=== PATIENT | male | born 1940 | race Asian ===

== ENCOUNTER 2019-07-20 22:43 | Emergency (ER) | payer OTHER ==
[~2019-07-20] VITALS: Ht 149.9 cm; Wt 46.7 kg
[2019-07-20] MEDS ORDERED: IV NS 0.9% 500 ML BAG IV ONE (23:00)
--- NOTE | 2019-07-20 23:01 | NUR ---
BIB EMS FROM [facility] C/O HYPOGLYCEMIA. 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 PT ALERT AND RESPONSIVE, NO ALOC . NO PERSPIRATION. NO C/O PAIN OR DISCOMFORT .WILL CONT TO MONITOR ,
--- NOTE | 2019-07-20 23:05 | NUR ---
FSBS: 166 MD AWARE
[2019-07-20 23:06] LABS: BASOPHILS % (AUTO) 0.2 % (0.0-2.0); EOSINOPHILS % (AUTO) 0.1 % (0.0-6.0); HEMATOCRIT 29 % (39-51); HEMOGLOBIN 9.8 g/dL (13.5-17.5); LYMPHOCYTES # (AUTO) 0.4 /CMM (0.8-4.8); LYMPHOCYTES % (AUTO) 6.1 % (20.0-44.0); MEAN CORPUSCULAR HGB CONC 34 g/dl (31.0-36.0); MEAN CORPUSCULAR VOLUME 97 fL (80-96); MONOCYTES # (AUTO) 0.4 /CMM (0.1-1.30); MONOCYTES % (AUTO) 6.6 % (2.0-12.0); NEUTROPHILS # (AUTO) 5.8 /CMM (1.8-8.9); PLATELET COUNT (AUTO) 195 /CMM (150-450); RED BLOOD CELL COUNT(AUTO) 3.03 MIL/uL (4.5-6.0); WHITE BLOOD COUNT (AUTO) 6.6 K/uL (4.3-11.0)
[2019-07-20 23:13] LABS: CALCIUM, SERUM 8.4 mg/dL (8.5-10.1); CARBON DIOXIDE 25 mmol/L (21-32); CHLORIDE 107 mmol/L (98-107); CREATININE 0.9 mg/dL (0.6-1.3); GLUCOSE 171 mg/dL (74-106); POTASSIUM 3.6 mmol/L (3.5-5.1); SODIUM SERUM 140 mmol/L (136-145); UREA NITROGEN, BLOOD 27 mg/dL (7-18)
[2019-07-20 23:26] LABS: ALANINE AMINOTRANSFERASE < 6 U/L (12-78); ALBUMIN 3.1 g/dL (3.4-5.0); ALKALINE PHOSPHATASE 26 U/L (46-116); ASPARTATE AMINOTRANSFERASE 24 U/L (15-37); B-TYPE NATRIURETIC PEPTIDE 466 PG/ML (0-125); BILIRUBIN,DIRECT 0.2 mg/dL (0.0-0.2); BILIRUBIN,TOTAL 0.3 mg/dL (0.2-1.0); TOTAL PROTEIN, SERUM 6.5 g/dL (6.4-8.2)
--- NOTE | 2019-07-20 23:27 | NUR ---
SON AND DTR IN LAW AT THE BED SIDE. PER PDTR IN LAW, PT HAS BEEN ON LANTUS INSULN 10 UNITS DAILY WHICH HAS RECENTLY CHANGED TO GLIPIZIDE 2.5MG BID WHICH WAS GIVEN IN THE EVENING WITH BS:41!
--- NOTE | 2019-07-21 00:12 | NUR ---
IV removed. Catheter intact and site benign. Pressure and 4x4 applied to site. No bleeding noted.Patient discharged to home in stable condition. Written and verbal after care instructions given. Patient verbalizes understanding of instruction.
--- NOTE | 2019-07-21 00:13 | NUR ---
PT WAS ASSISTED TO THE CAR W/ A WC. FAMILY WILL PROVIDE RIDE W/ THEIR PRIVATE CAR BACK TO THE FACILITY
[2019-07-21 00:20] VITALS: BP 122/62
== END 2019-07-21 00:13 | disposition home or self-care (01) ==
LOC: ER 22:45
DX: E11.649 Type 2 diabetes mellitus with hypoglycemia without coma (principal); E78.00 Pure hypercholesterolemia, unspecified; G20 Parkinson's disease
CPT/HCPCS: 36415; 71045; 80048; 80076; 82962; 83880; 84484; 85025; 93005 ×2; 99284; J7040 ×2